=== PATIENT | male | born 1980 | race Caucasian/White ===

== ENCOUNTER 2017-01-21 20:51 | Emergency (ER) | payer OTHER ==
[~2017-01-21] VITALS: Ht 188 cm; Wt 90.0 kg
[~2017-01-21 20:51] MED LIST: ANDRODERM1 EAC1 TD; PREDNISONE10 MG PO; ZUBSOLV 8.6-2.1 EACH SL
[2017-01-21] MEDS ORDERED: CLONIDINE HCL0.1 MG PO (22:24)
[2017-01-21] MEDS ORDERED: TRAZODONE HCL50 MG PO (22:24)
[2017-01-21 22:40] VITALS: BP 122/85
== END 2017-01-21 22:41 | disposition home or self-care (01) ==
LOC: EME 20:51
DX: F11.23 Opioid dependence with withdrawal (principal); Z76.0 Encounter for issue of repeat prescription; F17.200 Nicotine dependence, unspecified, uncomplicated
CPT/HCPCS: 99281; 99283; J0574

== ENCOUNTER 2017-01-22 18:19 | Inpatient (IN) | payer OTHER ==
[~2017-01-22] VITALS: Ht 188 cm; Wt 86.9 kg
[~2017-01-22 18:19] MED LIST changes: +CLONIDINE HCL0.1 MG PO; +TRAZODONE HCL50 MG PO
[2017-01-22 18:29] LABS: EOSINOPHIL (%) 1.1 % (0-5); EOSINOPHIL COUNT 0.1 K/uL (0-0.3); HEMATOCRIT 39.6 % (38.0-50.0); IMMATURE GRANULOCYTE (%) 0.2 % (0.0-0.7); INSTRUMENT ABS NEUTROPHIL CT 3.1 K/uL; LYMPHOCYTE COUNT 2.7 K/uL (1.0-2.8); MCH 30.1 PG (29.0-34.0); MCHC 34.1 G/DL (30.0-36.0); MCV 88.4 FL (86-99); MEAN PLAT.VOLUME 8.2 uM^3 (9.0-12.4); MONOCYTE (%) 5.8 % (3-12); MONOCYTE COUNT 0.4 K/uL (0-0.8); NEUTROPHIL (%) 49.4 % (45-76); NEUTROPHIL COUNT 3.1 K/uL (1.8-6.4); PLATELET COUNT 259 K/uL (156-360); RBC DIS.WIDTH-CV 12.5 % (11.8-14.6); RBC DIS.WIDTH-SD 40.2 % (39-53); RED BLOOD COUNT 4.48 M/uL (4.00-5.50); WHITE BLOOD COUNT 6.2 K/uL (4.1-10.2)
[2017-01-22 18:39] LABS: AMYLASE 32 IU/L (1-118); CHLORIDE 106 mEq/L (99-109); POTASSIUM 3.7 mEq/L (3.7-5.4); SODIUM 140 mEq/L (136-147)
[2017-01-22 18:41] LABS: GLUCOSE 82 mg/dL (70-99)
[2017-01-22 18:42] LABS: ANION GAP 13 MEQ/L (2-14)
[2017-01-22 18:44] LABS: SERUM ETHYL ALCOHOL 12 mg/dL
[2017-01-22 18:45] LABS: GFR ESTIMATE (CALCULATED) > 59 mL/min/
[2017-01-22 18:46] LABS: UREA NITROGEN (BUN) 13 mg/dL (9-23)
[2017-01-22 18:48] LABS: LIPASE 15 U/L (1.0-51.0)
[2017-01-22 20:13] LABS: ADD MIUA? YES; BILIRUBIN NEGATIVE; BLOOD SMALL; COLOR STRAW ((YELLOW)); GLUCOSE (STRIP) NEGATIVE; KETONES NEGATIVE; LEUKOCYTES NEGATIVE; NITRITE NEGATIVE; PROTEIN (STRIP) NEGATIVE; SPECIFIC GRAVITY 1.019 (1.000-1.030); UROBILINOGEN 0.2 MG/DL (0.2-1.0)
[2017-01-22 20:15] LABS: BACTERIA NONE SEEN /HPF; EPITHELIAL CELLS NONE SEEN /HPF; MUCUS NONE SEEN /LPF; RED BLOOD CELLS 0-5 /HPF (0-5); UCUL ADDED? NO; WHITE BLOOD CELLS NONE SEEN /HPF (0-5)
[2017-01-22 20:20] LABS: AMPHETAMINE PRESUMPTIVE POSITIVE (500 ng/mL); BARBITURATES NEGATIVE (200 ng/mL); BENZODIAZEPINES PRESUMPTIVE POSITIVE (150 ng/mL); COCAINE NEGATIVE (150 ng/mL); INTERNAL CONTROLS VALID? YES; METHADONE NEGATIVE (200 ng/mL); METHAMPHETAMINE NEGATIVE (500 ng/mL); OPIATES (MORPHINE) NEGATIVE (100 ng/mL); OXYCODONE NEGATIVE (100 ng/mL); PHENCYCLIDINE NEGATIVE (25 ng/mL); PROPOXYPHENE NEGATIVE (300 ng/mL); THC CANNABINOIDS PRESUMPTIVE POSITIVE (50 ng/mL); TRICYCLIC ANTIDEPRESSANTS NEGATIVE (300 ng/mL)
[2017-01-22 20:21] LABS: ADD MEDTOX COMMENT Y
[2017-01-22 21:33] LABS: BENZODIAZEPINES, URINE SCREEN POSITIVE (200 ng/mL)
[2017-01-23 04:37] VITALS: BP 123/65
[2017-01-23 07:59] VITALS: BP 104/51
[2017-01-23 15:32] VITALS: BP 85/46
[2017-01-23 20:05] VITALS: BP 100/56
[2017-01-24 07:37] VITALS: BP 113/57
[2017-01-24 15:56] VITALS: BP 112/62
[2017-01-25 07:49] VITALS: BP 103/58
== END 2017-01-25 10:47 | disposition home or self-care (01) | DRG 885 ==
LOC: EME 18:19 → TRA 18:19 → 1WEST 21:24 → EDOF 21:24 → 1WEST 21:24
PROVIDERS: Emergency Medicine
DX: F33.2 Major depressive disorder, recurrent severe without psychotic features (principal); F10.10 Alcohol abuse, uncomplicated; F13.10 Sedative, hypnotic or anxiolytic abuse, uncomplicated; R45.851 Suicidal ideations; F12.90 Cannabis use, unspecified, uncomplicated
CPT/HCPCS: 70450; 71260; 72125; 72129; 72132; 73110; 73552; 74177; 80048; 81003; 82150; 83690; 84999; 85025; 86850; 86900; 86901; 90837; 93005; 97165 GO; 99281; 99285; G0480; J1630; J2060; Q0169; Q0177